=== PATIENT | male | born 1935 | race Caucasian/White ===

== ENCOUNTER 2017-12-17 17:15 | Inpatient (IN) ==
[2017-12-17 19:10] LABS: Basophils % 0.2 % (0.0-0.8); Hemoglobin 12.4 GM/DL (14.0-18.0); Immature Granulocytes Absolute 0.15 #; Lymphocytes # 1.6 10*3/uL (1.4-4.0); Lymphocytes % 10.4 % (21.2-54.2); Mean Corpuscular HGB Conc 33.5 GM/DL (32-36); Mean Corpuscular Hemoglobin 30 PG (27-34); Mean Corpuscular Volume 90.5 FL (87-102); Mean Platelet Volume 9.2 FL (9.6-12.0); Monocytes # 0.6 10*3/uL (0.11-0.8); Monocytes % 4.2 % (1.7-12.7); Neutrophils # 12.7 10*3/uL (1.4-7.4); Neutrophils % 84.2 % (38.7-73.9); Platelet Count 399 T/CUMM (130-400); Red Blood Count 4.09 MC/CUMM (3.8-5.5); Red Cell Distribution Width 13.8 % (9.3-17.3); White Blood Count 15.1 T/CUMM (4-12)
[2017-12-17 19:40] LABS: Albumin 3.5 G/DL (3.4-5.0); Bilirubin,Total 0.5 MG/DL (0.2-1.0); Calcium 8.5 MG/DL (8.5-10.1); Lactic Acid 1.3 MMOL/L (0.4-2.0); Osmolality,Calculated 291.1 MOS/KG (273-304); Total Protein 6.9 G/DL (6.4-8.3)
[2017-12-17] MEDS ORDERED: SODIUM CHLORIDE 0.9% 1,000 ML IV ONE (20:15)
[2017-12-17] MEDS ORDERED: ONDANSETRON 4 MG/2 ML VIAL IV PRN (20:22)
[2017-12-17] MEDS ORDERED: MORPHINE 4 MG/1 ML VIAL IV PRN (20:25)
[2017-12-17] MEDS: LACTATED RINGERS 1,000 ML IV SCH (22:30)
[2017-12-17] MEDS: MULTIVITAMIN (OCUVITE) TABLET PO SCH (22:31)
[2017-12-17] MEDS: FERROUS SULFATE 325 MG TABLET PO SCH (22:31)
[2017-12-17] MEDS: cycloSPORINE OPH EMUL 1 VIAL BOTH EYES SCH (22:31)
[2017-12-18 06:08] LABS: Basophils % 0.1 % (0.0-0.8); Eosinophils % 0.1 % (0.00-10.9); Hematocrit 34.4 VOL% (42.0-52.0); Hemoglobin 11.5 GM/DL (14.0-18.0); Immature Granulocytes % 0.7 %; Immature Granulocytes Absolute 0.11 #; Lymphocytes # 2.7 10*3/uL (1.4-4.0); Mean Corpuscular HGB Conc 33.4 GM/DL (32-36); Mean Corpuscular Hemoglobin 30 PG (27-34); Mean Corpuscular Volume 90.3 FL (87-102); Mean Platelet Volume 9.5 FL (9.6-12.0); Monocytes # 1.3 10*3/uL (0.11-0.8); Monocytes % 8.2 % (1.7-12.7); Neutrophils # 11.7 10*3/uL (1.4-7.4); Neutrophils % 73.9 % (38.7-73.9); Platelet Count 429 T/CUMM (130-400); Red Blood Count 3.81 MC/CUMM (3.8-5.5); White Blood Count 15.8 T/CUMM (4-12)
[2017-12-18] MEDS: LACTATED RINGERS 1,000 ML IV SCH ×3 (06:26→22:53)
[2017-12-18 06:32] LABS: Calcium 8.3 MG/DL (8.5-10.1); Osmolality,Calculated 280.7 MOS/KG (273-304); Potassium 3.7 MMOL/L (3.5-5.1)
[2017-12-18] MEDS ORDERED: cefOXitin 2,000 MG in SYRINGE 1 EACH IV ONE (09:30)
[2017-12-18] MEDS: ASPIRIN EC 81 MG TABLET PO SCH (10:15)
[2017-12-18] MEDS: PIOGLITAZONE 15 MG TABLET PO SCH (10:15)
[2017-12-18] MEDS: metFORMIN 500 MG TABLET PO SCH ×3 (10:15→17:11)
[2017-12-18] MEDS: OMEGA 3 ACID ETHYL ESTERS 1 GM CAPSULE PO SCH (10:16)
[2017-12-18] MEDS: FINASTERIDE 5 MG TABLET PO SCH (10:16)
[2017-12-18] MEDS: cycloSPORINE OPH EMUL 1 VIAL BOTH EYES SCH ×2 (10:16→20:13)
[2017-12-18] MEDS: MULTIVITAMIN (OCUVITE) TABLET PO SCH ×2 (10:16→20:08)
[2017-12-18] MEDS: PANTOPRAZOLE 40 MG TABLET PO SCH (10:16)
[2017-12-18] MEDS: FERROUS SULFATE 325 MG TABLET PO SCH ×2 (10:16→20:08)
[2017-12-18] MEDS: MONTELUKAST 10 MG TABLET PO SCH (10:17)
[2017-12-18] MEDS: ASCORBIC ACID 500 MG TABLET PO SCH (10:17)
[2017-12-18] MEDS ORDERED: PANTOPRAZOLE 40 MG VIAL IV ONE (10:18)
[2017-12-18] MEDS: TIMOLOL 0.5% OPH SOLN 5 ML BOTTLE BOTH EYES SCH (10:18)
[2017-12-18] MEDS ORDERED: BUPIVACAINE MPF 0.25% /EPI 30 ML VIAL ONE (11:18)
[2017-12-18] MEDS ORDERED: GLUCAGON 1 MG VIAL IM PRN (11:54)
[2017-12-18] MEDS ORDERED: DEXTROSE 50% 25 GM/50 ML VIAL IV PRN (11:54)
[2017-12-18 13:40] LABS: Apearance,Urine Slightly Hazy (Clear); Bilirubin,Urine Negative (Negative); Blood, Urine Negative (Negative); Glucose,Urine (UA) >=500 mg/dL (Negative); Ketones,Urine 80 mg/dL (Negative); Mucus,Urine Occasional /LPF (Occasional); Nitrite,Urine Positive (Negative); Protein,Urine 30 MG/DL; RBC,Urine 2 /HPF (0-4); Squamous Epithelial Cell,Urine Occasional /HPF (0-10); Urine Color Yellow (Yellow); Urine Specific Gravity 1.026 (1.001-1.035); Urine Urobilinogen < 2.0 EU/DL (0.2-1.0); WBC,Urine 35 /HPF (0-6)
[2017-12-18] MEDS ORDERED: fentaNYL 100 MCG/2 ML VIAL ONE (13:41)
[2017-12-18] MEDS ORDERED: SUCCINYLCHOLINE 200 MG/10 ML VIAL ONE (13:41)
[2017-12-18] MEDS ORDERED: SEVOFLURANE 1 UNIT/15 MINUTE INH ONE (13:41)
[2017-12-18] MEDS ORDERED: GLYCOPYRROLATE 0.4 MG/2 ML VIAL ONE (13:41)
[2017-12-18] MEDS ORDERED: ONDANSETRON 4 MG/2 ML VIAL ONE (13:41)
[2017-12-18] MEDS ORDERED: MIDAZOLAM 2 MG/2 ML VIAL ONE (13:41)
[2017-12-18] MEDS ORDERED: PROPOFOL 200 MG/20 ML VIAL IV ONE (13:41)
[2017-12-18] MEDS ORDERED: NEOSTIGMINE 10 MG/10 ML VIAL ONE (13:42)
[2017-12-18] MEDS ORDERED: ROCURONIUM 100 MG/10 ML VIAL IV ONE (13:42)
[2017-12-18] MEDS ORDERED: LACTATED RINGERS 2,000 ML IV ONE (13:42)
[2017-12-18] MEDS: INSULIN REGULAR 100 UNIT/ML SUBCUT SCH ×2 (17:00→20:12)
[2017-12-18] MEDS: ceFAZolin 1,000 MG in SYRINGE 1 EACH IV SCH ×2 (17:01→22:52)
[2017-12-18] MEDS: GLIMEPIRIDE 4 MG TABLET PO SCH (17:10)
[2017-12-18] MEDS: SILODOSIN 8 MG CAPSULE PO SCH (20:09)
[2017-12-19] MEDS: ceFAZolin 1,000 MG in SYRINGE 1 EACH IV SCH ×4 (05:04→22:50)
[2017-12-19] MEDS: LACTATED RINGERS 1,000 ML IV SCH ×3 (05:05→22:49)
[2017-12-19 07:36] LABS: Basophils % 0.2 % (0.0-0.8); Eosinophils % 0.2 % (0.00-10.9); Hematocrit 34.2 VOL% (42.0-52.0); Hemoglobin 11.1 GM/DL (14.0-18.0); Immature Granulocytes % 0.2 %; Immature Granulocytes Absolute 0.02 #; Lymphocytes % 24.5 % (21.2-54.2); Mean Corpuscular HGB Conc 32.5 GM/DL (32-36); Mean Corpuscular Hemoglobin 30 PG (27-34); Mean Corpuscular Volume 92.2 FL (87-102); Mean Platelet Volume 9.9 FL (9.6-12.0); Monocytes # 1.4 10*3/uL (0.11-0.8); Monocytes % 17.8 % (1.7-12.7); Neutrophils # 4.6 10*3/uL (1.4-7.4); Neutrophils % 57.1 % (38.7-73.9); Platelet Count 373 T/CUMM (130-400); Red Blood Count 3.71 MC/CUMM (3.8-5.5); Red Cell Distribution Width 14.3 % (9.3-17.3); White Blood Count 8.1 T/CUMM (4-12)
[2017-12-19] MEDS: INSULIN REGULAR 100 UNIT/ML SUBCUT SCH ×4 (07:47→21:10)
[2017-12-19 07:53] LABS: Calcium 7.7 MG/DL (8.5-10.1); Osmolality,Calculated 279.5 MOS/KG (273-304); Potassium 3.5 MMOL/L (3.5-5.1)
[2017-12-19 08:04] LABS: Band Neutrophils 27 % (0-10); Lymphocytes 19 % (20-55); Segmented Neutrophils 43 % (50-85); Total Cells Counted 100
[2017-12-19 08:05] LABS: Platelet Estimate Normal
[2017-12-19] MEDS: TIMOLOL 0.5% OPH SOLN 5 ML BOTTLE BOTH EYES SCH (09:14)
[2017-12-19] MEDS: MONTELUKAST 10 MG TABLET PO SCH (09:14)
[2017-12-19] MEDS: cycloSPORINE OPH EMUL 1 VIAL BOTH EYES SCH ×2 (09:15→21:10)
[2017-12-19] MEDS: metFORMIN 500 MG TABLET PO SCH ×3 (09:44→17:50)
[2017-12-19] MEDS: OMEGA 3 ACID ETHYL ESTERS 1 GM CAPSULE PO SCH (09:44)
[2017-12-19] MEDS: FERROUS SULFATE 325 MG TABLET PO SCH ×2 (09:44→21:09)
[2017-12-19] MEDS: ASPIRIN EC 81 MG TABLET PO SCH (09:44)
[2017-12-19] MEDS: PIOGLITAZONE 15 MG TABLET PO SCH (09:44)
[2017-12-19] MEDS: FINASTERIDE 5 MG TABLET PO SCH (09:45)
[2017-12-19] MEDS: MULTIVITAMIN (OCUVITE) TABLET PO SCH ×2 (09:45→21:10)
[2017-12-19] MEDS: PANTOPRAZOLE 40 MG TABLET PO SCH (09:45)
[2017-12-19] MEDS: ASCORBIC ACID 500 MG TABLET PO SCH (09:45)
[2017-12-19] MEDS: GLIMEPIRIDE 4 MG TABLET PO SCH (17:50)
[2017-12-19] MEDS: SILODOSIN 8 MG CAPSULE PO SCH (21:09)
[2017-12-20] MEDS: LACTATED RINGERS 1,000 ML IV SCH ×3 (04:51→20:36)
[2017-12-20] MEDS: ceFAZolin 1,000 MG in SYRINGE 1 EACH IV SCH ×4 (04:51→22:23)
[2017-12-20] MEDS: INSULIN REGULAR 100 UNIT/ML SUBCUT SCH ×4 (07:04→20:30)
[2017-12-20] MEDS: metFORMIN 500 MG TABLET PO SCH ×3 (08:45→17:02)
[2017-12-20] MEDS: PIOGLITAZONE 15 MG TABLET PO SCH (08:45)
[2017-12-20] MEDS: ASPIRIN EC 81 MG TABLET PO SCH (08:45)
[2017-12-20] MEDS: FERROUS SULFATE 325 MG TABLET PO SCH ×2 (08:46→20:30)
[2017-12-20] MEDS: OMEGA 3 ACID ETHYL ESTERS 1 GM CAPSULE PO SCH (08:46)
[2017-12-20] MEDS: cycloSPORINE OPH EMUL 1 VIAL BOTH EYES SCH ×2 (08:47→20:30)
[2017-12-20] MEDS: PANTOPRAZOLE 40 MG TABLET PO SCH (08:47)
[2017-12-20] MEDS: MONTELUKAST 10 MG TABLET PO SCH (08:47)
[2017-12-20] MEDS: FINASTERIDE 5 MG TABLET PO SCH (08:47)
[2017-12-20] MEDS: MULTIVITAMIN (OCUVITE) TABLET PO SCH (08:47)
[2017-12-20] MEDS: TIMOLOL 0.5% OPH SOLN 5 ML BOTTLE BOTH EYES SCH (08:48)
[2017-12-20] MEDS: ASCORBIC ACID 500 MG TABLET PO SCH (08:48)
[2017-12-20] MEDS: [UNRECOGNIZED DRUG - REMARK] PO SCH (08:54)
[2017-12-20] MEDS: Mirabegron [Myrbetriq] 50 MG PO SCH (08:55)
[2017-12-20] MEDS: PRESERVISION PO SCH ×2 (10:11→20:30)
[2017-12-20 12:38] LABS: Apearance,Urine CLEAR (Clear); Bilirubin,Urine Negative (Negative); Blood, Urine Negative (Negative); Glucose,Urine (UA) 150 mg/dL (Negative); Ketones,Urine 20 mg/dL (Negative); Mucus,Urine Occasional /LPF (Occasional); Nitrite,Urine Negative (Negative); Protein,Urine Negative; RBC,Urine 1 /HPF (0-4); Squamous Epithelial Cell,Urine Occasional /HPF (0-10); Urine Color Yellow (Yellow); Urine Specific Gravity 1.014 (1.001-1.035); Urine Urobilinogen < 2.0 EU/DL (0.2-1.0); WBC,Urine 7 /HPF (0-6)
[2017-12-20] MEDS: GLIMEPIRIDE 4 MG TABLET PO SCH (17:02)
[2017-12-20] MEDS: SILODOSIN 8 MG CAPSULE PO SCH (20:30)
[2017-12-20] MEDS ORDERED: FUROSEMIDE 20 MG/2 ML VIAL IV ONE (22:07)
[2017-12-20] MEDS: ALBUTEROL/IPRATROPIUM 3 ML NEB RESP TX PRN (22:16)
[2017-12-21 02:46] LABS: Basophils % 0.3 % (0.0-0.8); Eosinophils % 0.1 % (0.00-10.9); Hematocrit 36.8 VOL% (42.0-52.0); Immature Granulocytes Absolute 0.12 #; Lymphocytes # 1.9 10*3/uL (1.4-4.0); Lymphocytes % 15.1 % (21.2-54.2); Mean Corpuscular HGB Conc 32.6 GM/DL (32-36); Mean Corpuscular Hemoglobin 30 PG (27-34); Monocytes # 1.8 10*3/uL (0.11-0.8); Monocytes % 14.7 % (1.7-12.7); Neutrophils # 8.5 10*3/uL (1.4-7.4); Neutrophils % 68.8 % (38.7-73.9); Platelet Count 426 T/CUMM (130-400); Red Cell Distribution Width 13.7 % (9.3-17.3); White Blood Count 12.3 T/CUMM (4-12)
[2017-12-21] MEDS: ALBUTEROL/IPRATROPIUM 3 ML NEB RESP TX PRN (03:19)
[2017-12-21 03:32] LABS: Osmolality,Calculated 288.5 MOS/KG (273-304); Potassium 2.9 MMOL/L (3.5-5.1)
[2017-12-21 03:40] LABS: Platelet Estimate Increased
[2017-12-21] MEDS: ceFAZolin 1,000 MG in SYRINGE 1 EACH IV SCH (05:17)
[2017-12-21] MEDS ORDERED: METOPROLOL TARTRATE 5 MG/5 ML VIAL IV ONE ×2 (05:40→05:43)
[2017-12-21 05:57] LABS: ABG Base Excess -0.3 MMOL/L (-2.5-2.5); ABG HCO3 24.2 MMOL/L (20-26); ABG Oxygen Saturation 95.6 % (95-100); ABG PCO2 38.9 MM HG (35-48); ABG PH 7.404 (7.35-7.45); ABG PO2 79.7 MM HG (80-95); ABG TCO2 21.6 MMOL/L (23-27)
[2017-12-21] MEDS: POTASSIUM CHLORIDE RIDER 10 MEQ in PREMIX 1 EACH IV PRN ×8 (06:32→19:34)
[2017-12-21 06:40] LABS: Apearance,Urine CLEAR (Clear); Bilirubin,Urine Negative (Negative); Blood, Urine Negative (Negative); Glucose,Urine (UA) 150 mg/dL (Negative); Ketones,Urine 20 mg/dL (Negative); Nitrite,Urine Negative (Negative); Protein,Urine Negative; RBC,Urine <1 /HPF (0-4); Squamous Epithelial Cell,Urine Occasional /HPF (0-10); Urine Color Yellow (Yellow); Urine Specific Gravity 1.012 (1.001-1.035); Urine Urobilinogen < 2.0 EU/DL (0.2-1.0); WBC,Urine 1 /HPF (0-6)
[2017-12-21] MEDS: ALBUTEROL/IPRATROPIUM 3 ML NEB RESP TX SCH ×3 (08:23→19:34)
[2017-12-21] MEDS: METOCLOPRAMIDE 10 MG/2 ML VIAL IV SCH ×3 (08:44→21:18)
[2017-12-21] MEDS: metFORMIN 500 MG TABLET PO SCH ×3 (08:48→17:20)
[2017-12-21] MEDS: PIOGLITAZONE 15 MG TABLET PO SCH (08:48)
[2017-12-21] MEDS: PANTOPRAZOLE 40 MG TABLET PO SCH (08:49)
[2017-12-21] MEDS: MONTELUKAST 10 MG TABLET PO SCH (08:49)
[2017-12-21] MEDS: FINASTERIDE 5 MG TABLET PO SCH (08:49)
[2017-12-21] MEDS: ASPIRIN EC 81 MG TABLET PO SCH (08:50)
[2017-12-21] MEDS: OMEGA 3 ACID ETHYL ESTERS 1 GM CAPSULE PO SCH (08:50)
[2017-12-21] MEDS: FERROUS SULFATE 325 MG TABLET PO SCH ×2 (08:51→20:46)
[2017-12-21] MEDS: ASCORBIC ACID 500 MG TABLET PO SCH (08:51)
[2017-12-21] MEDS: ENOXAPARIN 40 MG/0.4 ML SYRINGE SUBCUT SCH (08:58)
[2017-12-21] MEDS: CLINDAMYCIN INJ 900 MG in PREMIX 1 EACH IV SCH ×3 (09:00→21:17)
[2017-12-21] MEDS: INSULIN REGULAR 100 UNIT/ML SUBCUT SCH ×3 (09:06→17:19)
[2017-12-21] MEDS: cycloSPORINE OPH EMUL 1 VIAL BOTH EYES SCH ×2 (09:25→21:19)
[2017-12-21] MEDS: TIMOLOL 0.5% OPH SOLN 5 ML BOTTLE BOTH EYES SCH (09:26)
[2017-12-21] MEDS: [UNRECOGNIZED DRUG - REMARK] PO SCH (09:32)
[2017-12-21] MEDS: Mirabegron [Myrbetriq] 50 MG PO SCH (09:32)
[2017-12-21] MEDS: PRESERVISION PO SCH ×2 (09:32→20:47)
[2017-12-21] MEDS: GLIMEPIRIDE 4 MG TABLET PO SCH (17:20)
[2017-12-21] MEDS: SILODOSIN 8 MG CAPSULE PO SCH (20:47)
[2017-12-22] MEDS: INSULIN REGULAR 100 UNIT/ML SUBCUT SCH ×5 (01:14→20:31)
[2017-12-22] MEDS: METOCLOPRAMIDE 10 MG/2 ML VIAL IV SCH ×4 (02:00→21:07)
[2017-12-22] MEDS: ALBUTEROL/IPRATROPIUM 3 ML NEB RESP TX SCH ×4 (02:02→19:59)
[2017-12-22 02:18] LABS: Basophils % 0.2 % (0.0-0.8); Eosinophils % 0.4 % (0.00-10.9); Hematocrit 26.7 VOL% (42.0-52.0); Hemoglobin 8.9 GM/DL (14.0-18.0); Immature Granulocytes % 2.6 %; Immature Granulocytes Absolute 0.27 #; Lymphocytes # 1.6 10*3/uL (1.4-4.0); Lymphocytes % 15.5 % (21.2-54.2); Mean Corpuscular HGB Conc 33.3 GM/DL (32-36); Mean Corpuscular Hemoglobin 30 PG (27-34); Mean Corpuscular Volume 90.8 FL (87-102); Mean Platelet Volume 10.1 FL (9.6-12.0); Monocytes # 1.7 10*3/uL (0.11-0.8); Monocytes % 15.8 % (1.7-12.7); Neutrophils # 6.8 10*3/uL (1.4-7.4); Neutrophils % 65.5 % (38.7-73.9); Platelet Count 333 T/CUMM (130-400); Red Blood Count 2.94 MC/CUMM (3.8-5.5); Red Cell Distribution Width 13.8 % (9.3-17.3); White Blood Count 10.4 T/CUMM (4-12)
[2017-12-22 02:49] LABS: Calcium 8.2 MG/DL (8.5-10.1); Osmolality,Calculated 287.1 MOS/KG (273-304); Potassium 3.2 MMOL/L (3.5-5.1)
[2017-12-22 03:16] LABS: Band Neutrophils 17 % (0-10); Lymphocytes 21 % (20-55); Metamyelocytes 4 %; Myelocytes 2 %; Segmented Neutrophils 39 % (50-85)
[2017-12-22 03:17] LABS: Platelet Estimate Normal; Reactive Lymphocytes 1+
[2017-12-22 03:18] LABS: Total Cells Counted 100
[2017-12-22] MEDS: POTASSIUM CHLORIDE RIDER 10 MEQ in PREMIX 1 EACH IV PRN ×6 (03:30→15:38)
[2017-12-22] MEDS: CLINDAMYCIN INJ 900 MG in PREMIX 1 EACH IV SCH ×5 (03:30→21:08)
[2017-12-22 06:32] LABS: Basophils % 0.3 % (0.0-0.8); Eosinophils # 0.1 10*3/uL (0.0-0.87); Eosinophils % 0.7 % (0.00-10.9); Hematocrit 28.8 VOL% (42.0-52.0); Hemoglobin 9.6 GM/DL (14.0-18.0); Immature Granulocytes % 4.7 %; Immature Granulocytes Absolute 0.58 #; Lymphocytes % 15.8 % (21.2-54.2); Mean Corpuscular HGB Conc 33.3 GM/DL (32-36); Mean Corpuscular Hemoglobin 31 PG (27-34); Mean Platelet Volume 9.6 FL (9.6-12.0); Monocytes # 1.9 10*3/uL (0.11-0.8); Monocytes % 15.4 % (1.7-12.7); Neutrophils # 7.9 10*3/uL (1.4-7.4); Neutrophils % 63.1 % (38.7-73.9); Platelet Count 335 T/CUMM (130-400); Red Blood Count 3.13 MC/CUMM (3.8-5.5); White Blood Count 12.4 T/CUMM (4-12)
[2017-12-22 07:01] LABS: Acanthocytes Few; Atypical Lymphocytes Few; Band Neutrophils 7 % (0-10); Eosinophils 1 % (0-10); Lymphocytes 17 % (20-55); Microcytosis Slight; Segmented Neutrophils 61 % (50-85); Total Cells Counted 100
[2017-12-22 07:02] LABS: Platelet Estimate Normal
[2017-12-22] MEDS: ASPIRIN EC 81 MG TABLET PO SCH (08:47)
[2017-12-22] MEDS: OMEGA 3 ACID ETHYL ESTERS 1 GM CAPSULE PO SCH (08:47)
[2017-12-22] MEDS: [UNRECOGNIZED DRUG - REMARK] PO SCH (08:47)
[2017-12-22] MEDS: ASCORBIC ACID 500 MG TABLET PO SCH (08:47)
[2017-12-22] MEDS: MONTELUKAST 10 MG TABLET PO SCH (08:47)
[2017-12-22] MEDS: FINASTERIDE 5 MG TABLET PO SCH (08:47)
[2017-12-22] MEDS: PIOGLITAZONE 15 MG TABLET PO SCH (08:47)
[2017-12-22] MEDS: FERROUS SULFATE 325 MG TABLET PO SCH ×3 (08:47→21:11)
[2017-12-22] MEDS: PANTOPRAZOLE 40 MG TABLET PO SCH (08:47)
[2017-12-22] MEDS: metFORMIN 500 MG TABLET PO SCH ×3 (08:47→17:29)
[2017-12-22] MEDS: PRESERVISION PO SCH ×3 (08:48→21:10)
[2017-12-22] MEDS: Mirabegron [Myrbetriq] 50 MG PO SCH (08:48)
[2017-12-22] MEDS: ENOXAPARIN 40 MG/0.4 ML SYRINGE SUBCUT SCH (08:52)
[2017-12-22] MEDS: TIMOLOL 0.5% OPH SOLN 5 ML BOTTLE BOTH EYES SCH (08:55)
[2017-12-22] MEDS: cycloSPORINE OPH EMUL 1 VIAL BOTH EYES SCH ×2 (08:55→21:09)
[2017-12-22] MEDS: GLIMEPIRIDE 4 MG TABLET PO SCH (17:29)
[2017-12-22] MEDS: SILODOSIN 8 MG CAPSULE PO SCH ×2 (21:09→21:11)
[2017-12-23] MEDS: ALBUTEROL/IPRATROPIUM 3 ML NEB RESP TX SCH ×4 (01:38→20:00)
[2017-12-23] MEDS: METOCLOPRAMIDE 10 MG/2 ML VIAL IV SCH ×4 (02:21→20:45)
[2017-12-23] MEDS: CLINDAMYCIN INJ 900 MG in PREMIX 1 EACH IV SCH ×4 (02:21→20:43)
[2017-12-23 03:39] LABS: Basophils # 0.1 10*3/uL (0.0-0.2); Basophils % 0.6 % (0.0-0.8); Eosinophils # 0.2 10*3/uL (0.0-0.87); Eosinophils % 1.4 % (0.00-10.9); Hematocrit 26.8 VOL% (42.0-52.0); Hemoglobin 8.6 GM/DL (14.0-18.0); Immature Granulocytes % 12.2 %; Immature Granulocytes Absolute 1.64 #; Lymphocytes # 1.5 10*3/uL (1.4-4.0); Lymphocytes % 11.2 % (21.2-54.2); Mean Corpuscular HGB Conc 32.1 GM/DL (32-36); Mean Corpuscular Hemoglobin 29 PG (27-34); Mean Corpuscular Volume 91.5 FL (87-102); Mean Platelet Volume 9.7 FL (9.6-12.0); Monocytes # 2.2 10*3/uL (0.11-0.8); Monocytes % 16.1 % (1.7-12.7); Neutrophils # 7.9 10*3/uL (1.4-7.4); Neutrophils % 58.5 % (38.7-73.9); Platelet Count 337 T/CUMM (130-400); Red Blood Count 2.93 MC/CUMM (3.8-5.5); Red Cell Distribution Width 14.2 % (9.3-17.3); White Blood Count 13.5 T/CUMM (4-12)
[2017-12-23 04:54] LABS: Band Neutrophils 4 % (0-10); Eosinophils 2 % (0-10); Hypochromasia Slight; Lymphocytes 14 % (20-55); Metamyelocytes 3 %; Platelet Estimate Normal; Polychromasia Few; Segmented Neutrophils 69 % (50-85); Total Cells Counted 100
[2017-12-23 04:55] LABS: Microcytosis 1+
[2017-12-23] MEDS: INSULIN REGULAR 100 UNIT/ML SUBCUT SCH ×4 (07:49→20:41)
[2017-12-23] MEDS: TIMOLOL 0.5% OPH SOLN 5 ML BOTTLE BOTH EYES SCH (09:03)
[2017-12-23] MEDS: ENOXAPARIN 40 MG/0.4 ML SYRINGE SUBCUT SCH (09:03)
[2017-12-23] MEDS: cycloSPORINE OPH EMUL 1 VIAL BOTH EYES SCH ×2 (09:04→20:44)
[2017-12-23] MEDS: metFORMIN 500 MG TABLET PO SCH ×3 (10:23→16:15)
[2017-12-23] MEDS: FERROUS SULFATE 325 MG TABLET PO SCH ×2 (10:24→20:44)
[2017-12-23] MEDS: OMEGA 3 ACID ETHYL ESTERS 1 GM CAPSULE PO SCH (10:24)
[2017-12-23] MEDS: ASPIRIN EC 81 MG TABLET PO SCH (10:24)
[2017-12-23] MEDS: PIOGLITAZONE 15 MG TABLET PO SCH (10:24)
[2017-12-23] MEDS: [UNRECOGNIZED DRUG - REMARK] PO SCH (10:24)
[2017-12-23] MEDS: Mirabegron [Myrbetriq] 50 MG PO SCH (10:25)
[2017-12-23] MEDS: PRESERVISION PO SCH ×2 (10:25→20:44)
[2017-12-23] MEDS: MONTELUKAST 10 MG TABLET PO SCH (10:27)
[2017-12-23] MEDS: PANTOPRAZOLE 40 MG TABLET PO SCH (10:27)
[2017-12-23] MEDS: FINASTERIDE 5 MG TABLET PO SCH (10:27)
[2017-12-23] MEDS: ASCORBIC ACID 500 MG TABLET PO SCH (10:27)
[2017-12-23] MEDS: GLIMEPIRIDE 4 MG TABLET PO SCH (16:15)
[2017-12-23] MEDS: SILODOSIN 8 MG CAPSULE PO SCH (20:41)
[2017-12-24] MEDS: ALBUTEROL/IPRATROPIUM 3 ML NEB RESP TX SCH ×4 (00:25→18:30)
[2017-12-24] MEDS: METOCLOPRAMIDE 10 MG/2 ML VIAL IV SCH ×4 (01:27→20:57)
[2017-12-24] MEDS: CLINDAMYCIN INJ 900 MG in PREMIX 1 EACH IV SCH ×4 (03:50→21:46)
[2017-12-24 04:24] LABS: Basophils # 0.2 10*3/uL (0.0-0.2); Basophils % 0.9 % (0.0-0.8); Eosinophils # 0.1 10*3/uL (0.0-0.87); Eosinophils % 0.7 % (0.00-10.9); Hematocrit 27.5 VOL% (42.0-52.0); Hemoglobin 8.8 GM/DL (14.0-18.0); Immature Granulocytes % 12.9 %; Immature Granulocytes Absolute 2.24 #; Lymphocytes # 1.4 10*3/uL (1.4-4.0); Lymphocytes % 8.2 % (21.2-54.2); Mean Corpuscular Hemoglobin 30 PG (27-34); Mean Corpuscular Volume 92.3 FL (87-102); Mean Platelet Volume 9.8 FL (9.6-12.0); Monocytes # 2.1 10*3/uL (0.11-0.8); Neutrophils # 11.4 10*3/uL (1.4-7.4); Neutrophils % 65.3 % (38.7-73.9); Platelet Count 366 T/CUMM (130-400); Red Blood Count 2.98 MC/CUMM (3.8-5.5); Red Cell Distribution Width 14.3 % (9.3-17.3); White Blood Count 17.4 T/CUMM (4-12)
[2017-12-24 04:49] LABS: Calcium 8.2 MG/DL (8.5-10.1)
[2017-12-24 05:15] LABS: Band Neutrophils 1 % (0-10); Eosinophils 1 % (0-10); Hypochromasia 1+; Lymphocytes 9 % (20-55); Platelet Estimate Adequate; Segmented Neutrophils 79 % (50-85); Total Cells Counted 100
[2017-12-24 05:16] LABS: Microcytosis 1+
[2017-12-24] MEDS: metFORMIN 500 MG TABLET PO SCH ×3 (09:26→17:43)
[2017-12-24] MEDS: MONTELUKAST 10 MG TABLET PO SCH (09:26)
[2017-12-24] MEDS: PANTOPRAZOLE 40 MG TABLET PO SCH (09:26)
[2017-12-24] MEDS: ENOXAPARIN 40 MG/0.4 ML SYRINGE SUBCUT SCH (09:26)
[2017-12-24] MEDS: FERROUS SULFATE 325 MG TABLET PO SCH ×2 (09:27→20:57)
[2017-12-24] MEDS: PIOGLITAZONE 15 MG TABLET PO SCH (09:27)
[2017-12-24] MEDS: FINASTERIDE 5 MG TABLET PO SCH (09:27)
[2017-12-24] MEDS: ASCORBIC ACID 500 MG TABLET PO SCH (09:27)
[2017-12-24] MEDS: OMEGA 3 ACID ETHYL ESTERS 1 GM CAPSULE PO SCH (09:28)
[2017-12-24] MEDS: ASPIRIN EC 81 MG TABLET PO SCH (09:28)
[2017-12-24] MEDS: cycloSPORINE OPH EMUL 1 VIAL BOTH EYES SCH ×2 (09:29→21:02)
[2017-12-24] MEDS: MEROPENEM 500 MG in SODIUM CHLORIDE 0.9% 100 ML IV SCH ×2 (09:29→17:43)
[2017-12-24] MEDS: TIMOLOL 0.5% OPH SOLN 5 ML BOTTLE BOTH EYES SCH (09:30)
[2017-12-24] MEDS: INSULIN REGULAR 100 UNIT/ML SUBCUT SCH ×4 (09:30→20:57)
[2017-12-24] MEDS: PRESERVISION PO SCH ×2 (09:30→20:58)
[2017-12-24] MEDS: [UNRECOGNIZED DRUG - REMARK] PO SCH (09:31)
[2017-12-24] MEDS: Mirabegron [Myrbetriq] 50 MG PO SCH (09:31)
[2017-12-24] MEDS ORDERED: CYANOCOBALAMIN 1000 MCG/1 ML VIAL IM ONE (11:07)
[2017-12-24] MEDS: GLIMEPIRIDE 4 MG TABLET PO SCH (17:43)
[2017-12-24] MEDS: SILODOSIN 8 MG CAPSULE PO SCH (20:57)
[2017-12-25] MEDS: ALBUTEROL/IPRATROPIUM 3 ML NEB RESP TX SCH ×4 (00:46→20:24)
[2017-12-25] MEDS: MEROPENEM 500 MG in SODIUM CHLORIDE 0.9% 100 ML IV SCH ×3 (02:20→17:10)
[2017-12-25] MEDS: CLINDAMYCIN INJ 900 MG in PREMIX 1 EACH IV SCH ×4 (03:45→20:59)
[2017-12-25] MEDS: METOCLOPRAMIDE 10 MG/2 ML VIAL IV SCH ×4 (04:26→21:01)
[2017-12-25 04:55] LABS: Basophils # 0.1 10*3/uL (0.0-0.2); Basophils % 0.8 % (0.0-0.8); Eosinophils # 0.3 10*3/uL (0.0-0.87); Eosinophils % 1.6 % (0.00-10.9); Hemoglobin 9.1 GM/DL (14.0-18.0); Immature Granulocytes % 12.3 %; Immature Granulocytes Absolute 2.02 #; Lymphocytes # 1.9 10*3/uL (1.4-4.0); Lymphocytes % 11.3 % (21.2-54.2); Mean Corpuscular HGB Conc 32.5 GM/DL (32-36); Mean Corpuscular Hemoglobin 30 PG (27-34); Mean Corpuscular Volume 91.8 FL (87-102); Mean Platelet Volume 10.1 FL (9.6-12.0); Monocytes # 1.8 10*3/uL (0.11-0.8); Monocytes % 10.8 % (1.7-12.7); NRBC # 0.02 10*3/uL; Neutrophils # 10.4 10*3/uL (1.4-7.4); Neutrophils % 63.2 % (38.7-73.9); Platelet Count 411 T/CUMM (130-400); Red Blood Count 3.05 MC/CUMM (3.8-5.5); Red Cell Distribution Width 14.1 % (9.3-17.3); White Blood Count 16.5 T/CUMM (4-12)
[2017-12-25 05:20] LABS: Band Neutrophils 6 % (0-10); Lymphocytes 11 % (20-55); Myelocytes 2 %; Segmented Neutrophils 68 % (50-85); Total Cells Counted 100
[2017-12-25 05:21] LABS: Hypochromasia 1+; Microcytosis 1+; Platelet Estimate Adequate
[2017-12-25 05:26] LABS: Calcium 8.1 MG/DL (8.5-10.1); Osmolality,Calculated 285.1 MOS/KG (273-304); Potassium 2.9 MMOL/L (3.5-5.1)
[2017-12-25 06:37] LABS: Apearance,Urine CLEAR (Clear); Bilirubin,Urine Negative (Negative); Blood, Urine Negative (Negative); Glucose,Urine (UA) >=500 mg/dL (Negative); Ketones,Urine 20 mg/dL (Negative); Mucus,Urine Occasional /LPF (Occasional); Nitrite,Urine Negative (Negative); Protein,Urine 100 MG/DL; RBC,Urine 44 /HPF (0-4); Squamous Epithelial Cell,Urine Occasional /HPF (0-10); Urine Color Yellow (Yellow); Urine Urobilinogen < 2.0 EU/DL (0.2-1.0); WBC,Urine 3 /HPF (0-6)
[2017-12-25] MEDS: INSULIN REGULAR 100 UNIT/ML SUBCUT SCH ×4 (08:01→21:00)
[2017-12-25] MEDS: ENOXAPARIN 40 MG/0.4 ML SYRINGE SUBCUT SCH (09:22)
[2017-12-25] MEDS: PANTOPRAZOLE 40 MG TABLET PO SCH (09:23)
[2017-12-25] MEDS: MONTELUKAST 10 MG TABLET PO SCH (09:23)
[2017-12-25] MEDS: metFORMIN 500 MG TABLET PO SCH ×3 (09:23→17:10)
[2017-12-25] MEDS: FINASTERIDE 5 MG TABLET PO SCH (09:23)
[2017-12-25] MEDS: PIOGLITAZONE 15 MG TABLET PO SCH (09:23)
[2017-12-25] MEDS: POTASSIUM CHLORIDE 20 MEQ TABLET PO PRN ×2 (09:24→11:11)
[2017-12-25] MEDS: OMEGA 3 ACID ETHYL ESTERS 1 GM CAPSULE PO SCH (09:24)
[2017-12-25] MEDS: FERROUS SULFATE 325 MG TABLET PO SCH ×2 (09:24→20:53)
[2017-12-25] MEDS: ASCORBIC ACID 500 MG TABLET PO SCH (09:24)
[2017-12-25] MEDS: cycloSPORINE OPH EMUL 1 VIAL BOTH EYES SCH ×2 (09:25→20:53)
[2017-12-25] MEDS: ASPIRIN EC 81 MG TABLET PO SCH (09:25)
[2017-12-25] MEDS: TIMOLOL 0.5% OPH SOLN 5 ML BOTTLE BOTH EYES SCH (09:25)
[2017-12-25] MEDS: PRESERVISION PO SCH ×2 (09:26→21:00)
[2017-12-25] MEDS: [UNRECOGNIZED DRUG - REMARK] PO SCH (09:26)
[2017-12-25] MEDS: Mirabegron [Myrbetriq] 50 MG PO SCH (09:26)
[2017-12-25] MEDS: DORNASE ALFA 2.5 MG/2.5 ML VIAL RESP TX SCH ×2 (10:10→20:24)
[2017-12-25] MEDS: POTASSIUM CHLORIDE 10 MEQ TABLET PO SCH ×3 (10:27→20:53)
[2017-12-25] MEDS: GLIMEPIRIDE 4 MG TABLET PO SCH (17:10)
[2017-12-25] MEDS: SILODOSIN 8 MG CAPSULE PO SCH (20:53)
[2017-12-26] MEDS: ALBUTEROL/IPRATROPIUM 3 ML NEB RESP TX SCH ×4 (01:38→19:19)
[2017-12-26] MEDS: MEROPENEM 500 MG in SODIUM CHLORIDE 0.9% 100 ML IV SCH ×3 (01:45→18:58)
[2017-12-26] MEDS: CLINDAMYCIN INJ 900 MG in PREMIX 1 EACH IV SCH ×4 (03:20→21:42)
[2017-12-26 05:32] LABS: Basophils # 0.1 10*3/uL (0.0-0.2); Basophils % 0.5 % (0.0-0.8); Eosinophils # 0.2 10*3/uL (0.0-0.87); Eosinophils % 1.2 % (0.00-10.9); Hematocrit 27.6 VOL% (42.0-52.0); Immature Granulocytes % 9.7 %; Immature Granulocytes Absolute 1.71 #; Lymphocytes % 11.1 % (21.2-54.2); Mean Corpuscular HGB Conc 32.6 GM/DL (32-36); Mean Corpuscular Hemoglobin 30 PG (27-34); Mean Corpuscular Volume 91.7 FL (87-102); Mean Platelet Volume 9.8 FL (9.6-12.0); Monocytes # 1.7 10*3/uL (0.11-0.8); Monocytes % 9.5 % (1.7-12.7); NRBC # 0.02 10*3/uL; Platelet Count 411 T/CUMM (130-400); Red Blood Count 3.01 MC/CUMM (3.8-5.5); White Blood Count 17.6 T/CUMM (4-12)
[2017-12-26 05:56] LABS: Eosinophils 1 % (0-10); Hypochromasia 1+; Lymphocytes 9 % (20-55); Microcytosis 1+; Platelet Estimate Adequate; Segmented Neutrophils 85 % (50-85); Total Cells Counted 100
[2017-12-26 06:07] LABS: Calcium 7.9 MG/DL (8.5-10.1); Osmolality,Calculated 282.4 MOS/KG (273-304); Potassium 3.3 MMOL/L (3.5-5.1)
[2017-12-26] MEDS: METOCLOPRAMIDE 10 MG/2 ML VIAL IV SCH ×3 (06:30→18:16)
[2017-12-26] MEDS: DORNASE ALFA 2.5 MG/2.5 ML VIAL RESP TX SCH ×2 (07:16→19:30)
[2017-12-26] MEDS: cycloSPORINE OPH EMUL 1 VIAL BOTH EYES SCH ×2 (09:33→21:43)
[2017-12-26] MEDS: TIMOLOL 0.5% OPH SOLN 5 ML BOTTLE BOTH EYES SCH (09:34)
[2017-12-26] MEDS: OMEGA 3 ACID ETHYL ESTERS 1 GM CAPSULE PO SCH (09:35)
[2017-12-26] MEDS: metFORMIN 500 MG TABLET PO SCH ×3 (09:36→18:15)
[2017-12-26] MEDS: PIOGLITAZONE 15 MG TABLET PO SCH (09:36)
[2017-12-26] MEDS: POTASSIUM CHLORIDE 20 MEQ TABLET PO PRN ×3 (09:36→18:15)
[2017-12-26] MEDS: FERROUS SULFATE 325 MG TABLET PO SCH ×2 (09:36→21:42)
[2017-12-26] MEDS: ASCORBIC ACID 500 MG TABLET PO SCH (09:36)
[2017-12-26] MEDS: MONTELUKAST 10 MG TABLET PO SCH (09:36)
[2017-12-26] MEDS: POTASSIUM CHLORIDE 10 MEQ TABLET PO SCH ×3 (09:36→21:42)
[2017-12-26] MEDS: FINASTERIDE 5 MG TABLET PO SCH (09:36)
[2017-12-26] MEDS: ASPIRIN EC 81 MG TABLET PO SCH (09:36)
[2017-12-26] MEDS: PANTOPRAZOLE 40 MG TABLET PO SCH (09:36)
[2017-12-26] MEDS: [UNRECOGNIZED DRUG - REMARK] PO SCH (09:39)
[2017-12-26] MEDS: PRESERVISION PO SCH ×2 (09:39→21:43)
[2017-12-26] MEDS: ENOXAPARIN 40 MG/0.4 ML SYRINGE SUBCUT SCH (09:39)
[2017-12-26] MEDS: INSULIN REGULAR 100 UNIT/ML SUBCUT SCH ×4 (09:40→21:43)
[2017-12-26] MEDS ORDERED: MAGNESIUM SULF RIDER 4 GM in PREMIX 1 EACH IV PRN (10:19)
[2017-12-26] MEDS: MAGNESIUM SULF RIDER 2 GM in PREMIX 1 EACH IV PRN (13:16)
[2017-12-26] MEDS: GLIMEPIRIDE 4 MG TABLET PO SCH (18:15)
[2017-12-26] MEDS: SILODOSIN 8 MG CAPSULE PO SCH (21:42)
[2017-12-27] MEDS: ALBUTEROL/IPRATROPIUM 3 ML NEB RESP TX SCH ×4 (00:32→19:00)
[2017-12-27] MEDS: METOCLOPRAMIDE 10 MG/2 ML VIAL IV SCH ×4 (01:17→17:36)
[2017-12-27] MEDS: MEROPENEM 500 MG in SODIUM CHLORIDE 0.9% 100 ML IV SCH ×3 (01:18→17:38)
[2017-12-27 02:06] LABS: Calcium 7.6 MG/DL (8.5-10.1); Osmolality,Calculated 284.1 MOS/KG (273-304); Potassium 3.2 MMOL/L (3.5-5.1)
[2017-12-27 02:11] LABS: Basophils # 0.1 10*3/uL (0.0-0.2); Basophils % 0.4 % (0.0-0.8); Eosinophils # 0.4 10*3/uL (0.0-0.87); Eosinophils % 2.3 % (0.00-10.9); Hematocrit 26.2 VOL% (42.0-52.0); Hemoglobin 8.6 GM/DL (14.0-18.0); Immature Granulocytes % 8.8 %; Lymphocytes # 2.9 10*3/uL (1.4-4.0); Lymphocytes % 17.9 % (21.2-54.2); Mean Corpuscular HGB Conc 32.8 GM/DL (32-36); Mean Corpuscular Hemoglobin 30 PG (27-34); Mean Platelet Volume 9.6 FL (9.6-12.0); Monocytes # 1.4 10*3/uL (0.11-0.8); Monocytes % 8.9 % (1.7-12.7); Neutrophils # 9.8 10*3/uL (1.4-7.4); Neutrophils % 61.7 % (38.7-73.9); Platelet Count 415 T/CUMM (130-400); Red Blood Count 2.88 MC/CUMM (3.8-5.5)
[2017-12-27 02:35] LABS: Band Neutrophils 2 % (0-10); Eosinophils 4 % (0-10); Lymphocytes 18 % (20-55); Platelet Estimate Normal; Segmented Neutrophils 69 % (50-85); Total Cells Counted 100
[2017-12-27] MEDS: CLINDAMYCIN INJ 900 MG in PREMIX 1 EACH IV SCH ×4 (04:10→21:53)
[2017-12-27] MEDS: DORNASE ALFA 2.5 MG/2.5 ML VIAL RESP TX SCH ×2 (07:25→19:10)
[2017-12-27] MEDS: INSULIN REGULAR 100 UNIT/ML SUBCUT SCH ×4 (08:29→20:55)
[2017-12-27] MEDS: TIMOLOL 0.5% OPH SOLN 5 ML BOTTLE BOTH EYES SCH (09:27)
[2017-12-27] MEDS: OMEGA 3 ACID ETHYL ESTERS 1 GM CAPSULE PO SCH (09:27)
[2017-12-27] MEDS: ASCORBIC ACID 500 MG TABLET PO SCH (09:27)
[2017-12-27] MEDS: MONTELUKAST 10 MG TABLET PO SCH (09:27)
[2017-12-27] MEDS: cycloSPORINE OPH EMUL 1 VIAL BOTH EYES SCH ×2 (09:27→21:53)
[2017-12-27] MEDS: PIOGLITAZONE 15 MG TABLET PO SCH (09:27)
[2017-12-27] MEDS: POTASSIUM CHLORIDE 10 MEQ TABLET PO SCH ×3 (09:27→21:52)
[2017-12-27] MEDS: PANTOPRAZOLE 40 MG TABLET PO SCH (09:28)
[2017-12-27] MEDS: ENOXAPARIN 40 MG/0.4 ML SYRINGE SUBCUT SCH (09:28)
[2017-12-27] MEDS: ASPIRIN EC 81 MG TABLET PO SCH (09:28)
[2017-12-27] MEDS: FERROUS SULFATE 325 MG TABLET PO SCH ×2 (09:28→21:52)
[2017-12-27] MEDS: metFORMIN 500 MG TABLET PO SCH ×3 (09:28→17:35)
[2017-12-27] MEDS: FINASTERIDE 5 MG TABLET PO SCH (09:28)
[2017-12-27] MEDS ORDERED: POTASSIUM CHLORIDE RIDER 10 MEQ in PREMIX 1 EACH IV PRN (09:51)
[2017-12-27] MEDS: [UNRECOGNIZED DRUG - REMARK] PO SCH (10:06)
[2017-12-27] MEDS: PRESERVISION PO SCH ×2 (10:07→22:07)
[2017-12-27 12:43] LABS: Apearance,Urine Slightly Hazy (Clear); Bilirubin,Urine Negative (Negative); Blood, Urine Negative (Negative); Calcium Oxalate Crystals,Urine Occasional /HPF (Few); Glucose,Urine (UA) >=500 mg/dL (Negative); Hyaline Casts,Urine 3 /LPF (0-3); Ketones,Urine 5 mg/dL (Negative); Mucus,Urine Occasional /LPF (Occasional); Nitrite,Urine Negative (Negative); Protein,Urine 30 MG/DL; RBC,Urine 37 /HPF (0-4); Squamous Epithelial Cell,Urine Occasional /HPF (0-10); Urine Color Yellow (Yellow); Urine Specific Gravity 1.016 (1.001-1.035); Urine Urobilinogen < 2.0 EU/DL (0.2-1.0); WBC,Urine 51 /HPF (0-6)
[2017-12-27] MEDS: GLIMEPIRIDE 4 MG TABLET PO SCH (17:35)
[2017-12-27] MEDS: SILODOSIN 8 MG CAPSULE PO SCH (21:52)
[2017-12-28] MEDS: ALBUTEROL/IPRATROPIUM 3 ML NEB RESP TX SCH ×4 (00:25→19:04)
[2017-12-28] MEDS: METOCLOPRAMIDE 10 MG/2 ML VIAL IV SCH ×4 (01:38→17:55)
[2017-12-28] MEDS: MEROPENEM 500 MG in SODIUM CHLORIDE 0.9% 100 ML IV SCH ×3 (01:39→16:19)
[2017-12-28] MEDS: CLINDAMYCIN INJ 900 MG in PREMIX 1 EACH IV SCH ×4 (03:02→20:25)
[2017-12-28 04:36] LABS: Basophils # 0.1 10*3/uL (0.0-0.2); Basophils % 0.4 % (0.0-0.8); Eosinophils # 0.3 10*3/uL (0.0-0.87); Hematocrit 26.6 VOL% (42.0-52.0); Hemoglobin 8.6 GM/DL (14.0-18.0); Immature Granulocytes % 7.9 %; Lymphocytes # 2.8 10*3/uL (1.4-4.0); Lymphocytes % 16.9 % (21.2-54.2); Mean Corpuscular HGB Conc 32.3 GM/DL (32-36); Mean Corpuscular Hemoglobin 29 PG (27-34); Mean Corpuscular Volume 90.8 FL (87-102); Mean Platelet Volume 9.7 FL (9.6-12.0); Monocytes # 1.3 10*3/uL (0.11-0.8); Monocytes % 8.1 % (1.7-12.7); Neutrophils # 10.6 10*3/uL (1.4-7.4); Neutrophils % 64.7 % (38.7-73.9); Platelet Count 467 T/CUMM (130-400); Red Blood Count 2.93 MC/CUMM (3.8-5.5); Red Cell Distribution Width 14.2 % (9.3-17.3); White Blood Count 16.4 T/CUMM (4-12)
[2017-12-28 04:51] LABS: Calcium 7.6 MG/DL (8.5-10.1); Osmolality,Calculated 279.4 MOS/KG (273-304); Potassium 3.1 MMOL/L (3.5-5.1)
[2017-12-28 07:19] LABS: Band Neutrophils 2 % (0-10); Eosinophils 3 % (0-10); Lymphocytes 25 % (20-55); Platelet Estimate Normal; Segmented Neutrophils 62 % (50-85); Total Cells Counted 100
[2017-12-28] MEDS: DORNASE ALFA 2.5 MG/2.5 ML VIAL RESP TX SCH ×2 (07:29→19:04)
[2017-12-28] MEDS: INSULIN REGULAR 100 UNIT/ML SUBCUT SCH ×4 (07:57→20:26)
[2017-12-28] MEDS: OMEGA 3 ACID ETHYL ESTERS 1 GM CAPSULE PO SCH (08:48)
[2017-12-28] MEDS: POTASSIUM CHLORIDE 10 MEQ TABLET PO SCH ×3 (08:48→20:25)
[2017-12-28] MEDS: metFORMIN 500 MG TABLET PO SCH ×3 (08:48→16:21)
[2017-12-28] MEDS: FERROUS SULFATE 325 MG TABLET PO SCH ×2 (08:49→20:26)
[2017-12-28] MEDS: PIOGLITAZONE 15 MG TABLET PO SCH (08:49)
[2017-12-28] MEDS: MONTELUKAST 10 MG TABLET PO SCH (08:49)
[2017-12-28] MEDS: ASCORBIC ACID 500 MG TABLET PO SCH (08:49)
[2017-12-28] MEDS: ASPIRIN EC 81 MG TABLET PO SCH (08:49)
[2017-12-28] MEDS: PANTOPRAZOLE 40 MG TABLET PO SCH (08:49)
[2017-12-28] MEDS: FINASTERIDE 5 MG TABLET PO SCH (08:50)
[2017-12-28] MEDS: cycloSPORINE OPH EMUL 1 VIAL BOTH EYES SCH ×2 (08:53→22:14)
[2017-12-28] MEDS: TIMOLOL 0.5% OPH SOLN 5 ML BOTTLE BOTH EYES SCH (08:53)
[2017-12-28] MEDS: ENOXAPARIN 40 MG/0.4 ML SYRINGE SUBCUT SCH (08:54)
[2017-12-28] MEDS: MAGNESIUM SULF RIDER 2 GM in PREMIX 1 EACH IV PRN (09:00)
[2017-12-28] MEDS: PRESERVISION PO SCH ×2 (09:01→20:26)
[2017-12-28] MEDS: [UNRECOGNIZED DRUG - REMARK] PO SCH (09:01)
[2017-12-28] MEDS: POTASSIUM CHLORIDE 20 MEQ TABLET PO PRN ×4 (11:45→20:25)
[2017-12-28] MEDS: FLUCONAZOLE 100 MG TABLET PO SCH (12:56)
[2017-12-28] MEDS: GLIMEPIRIDE 4 MG TABLET PO SCH (16:21)
[2017-12-28] MEDS: SILODOSIN 8 MG CAPSULE PO SCH (20:25)
[2017-12-29] MEDS: MEROPENEM 500 MG in SODIUM CHLORIDE 0.9% 100 ML IV SCH ×3 (00:33→18:15)
[2017-12-29] MEDS: METOCLOPRAMIDE 10 MG/2 ML VIAL IV SCH ×4 (00:33→18:13)
[2017-12-29] MEDS: ALBUTEROL/IPRATROPIUM 3 ML NEB RESP TX SCH ×4 (00:56→19:18)
[2017-12-29] MEDS: CLINDAMYCIN INJ 900 MG in PREMIX 1 EACH IV SCH ×4 (03:32→21:09)
[2017-12-29 05:38] LABS: Calcium 7.6 MG/DL (8.5-10.1); Osmolality,Calculated 280.3 MOS/KG (273-304); Potassium 4.1 MMOL/L (3.5-5.1)
[2017-12-29] MEDS: DORNASE ALFA 2.5 MG/2.5 ML VIAL RESP TX SCH ×2 (07:27→19:18)
[2017-12-29] MEDS: INSULIN REGULAR 100 UNIT/ML SUBCUT SCH ×4 (08:14→22:02)
[2017-12-29] MEDS: PRESERVISION PO SCH ×2 (09:54→22:02)
[2017-12-29] MEDS: FINASTERIDE 5 MG TABLET PO SCH (10:26)
[2017-12-29] MEDS: OMEGA 3 ACID ETHYL ESTERS 1 GM CAPSULE PO SCH (10:26)
[2017-12-29] MEDS: PIOGLITAZONE 15 MG TABLET PO SCH (10:26)
[2017-12-29] MEDS: metFORMIN 500 MG TABLET PO SCH ×3 (10:26→16:30)
[2017-12-29] MEDS: PANTOPRAZOLE 40 MG TABLET PO SCH (10:26)
[2017-12-29] MEDS: MONTELUKAST 10 MG TABLET PO SCH (10:27)
[2017-12-29] MEDS: [UNRECOGNIZED DRUG - REMARK] PO SCH (10:28)
[2017-12-29] MEDS: ASPIRIN EC 81 MG TABLET PO SCH (10:28)
[2017-12-29] MEDS: FLUCONAZOLE 100 MG TABLET PO SCH (10:28)
[2017-12-29] MEDS: cycloSPORINE OPH EMUL 1 VIAL BOTH EYES SCH ×2 (10:30→21:10)
[2017-12-29] MEDS: ENOXAPARIN 40 MG/0.4 ML SYRINGE SUBCUT SCH (10:30)
[2017-12-29] MEDS: TIMOLOL 0.5% OPH SOLN 5 ML BOTTLE BOTH EYES SCH (10:31)
[2017-12-29] MEDS: FERROUS SULFATE 325 MG TABLET PO SCH ×2 (10:34→21:09)
[2017-12-29] MEDS: POTASSIUM CHLORIDE 10 MEQ TABLET PO SCH ×3 (10:34→21:09)
[2017-12-29] MEDS: ASCORBIC ACID 500 MG TABLET PO SCH (10:35)
[2017-12-29] MEDS: GLIMEPIRIDE 4 MG TABLET PO SCH (16:30)
[2017-12-29] MEDS: SILODOSIN 8 MG CAPSULE PO SCH (21:09)
[2017-12-30] MEDS: MEROPENEM 500 MG in SODIUM CHLORIDE 0.9% 100 ML IV SCH ×3 (00:35→17:08)
[2017-12-30] MEDS: METOCLOPRAMIDE 10 MG/2 ML VIAL IV SCH ×5 (00:35→23:54)
[2017-12-30] MEDS: ALBUTEROL/IPRATROPIUM 3 ML NEB RESP TX SCH ×4 (01:31→18:54)
[2017-12-30] MEDS: CLINDAMYCIN INJ 900 MG in PREMIX 1 EACH IV SCH ×4 (03:30→21:56)
[2017-12-30 07:08] LABS: Basophils # 0.1 10*3/uL (0.0-0.2); Basophils % 0.4 % (0.0-0.8); Eosinophils # 0.3 10*3/uL (0.0-0.87); Eosinophils % 1.8 % (0.00-10.9); Hematocrit 28.5 VOL% (42.0-52.0); Hemoglobin 9.2 GM/DL (14.0-18.0); Immature Granulocytes % 6.8 %; Immature Granulocytes Absolute 1.05 #; Lymphocytes # 2.1 10*3/uL (1.4-4.0); Lymphocytes % 13.6 % (21.2-54.2); Mean Corpuscular HGB Conc 32.3 GM/DL (32-36); Mean Corpuscular Hemoglobin 30 PG (27-34); Mean Corpuscular Volume 91.6 FL (87-102); Mean Platelet Volume 9.6 FL (9.6-12.0); Monocytes # 1.3 10*3/uL (0.11-0.8); Monocytes % 8.2 % (1.7-12.7); Neutrophils # 10.7 10*3/uL (1.4-7.4); Neutrophils % 69.2 % (38.7-73.9); Platelet Count 553 T/CUMM (130-400); Red Blood Count 3.11 MC/CUMM (3.8-5.5); Red Cell Distribution Width 14.7 % (9.3-17.3); White Blood Count 15.5 T/CUMM (4-12)
[2017-12-30 07:27] LABS: Calcium 8.5 MG/DL (8.5-10.1); Osmolality,Calculated 278.5 MOS/KG (273-304); Potassium 4.5 MMOL/L (3.5-5.1)
[2017-12-30 07:35] LABS: Band Neutrophils 1 % (0-10); Eosinophils 3 % (0-10); Hypochromasia 1+; Lymphocytes 8 % (20-55); Microcytosis 1+; Myelocytes 1 %; Segmented Neutrophils 78 % (50-85); Total Cells Counted 100
[2017-12-30 07:36] LABS: Platelet Estimate Increased
[2017-12-30] MEDS: DORNASE ALFA 2.5 MG/2.5 ML VIAL RESP TX SCH ×2 (08:15→19:04)
[2017-12-30] MEDS: FLUCONAZOLE 100 MG TABLET PO SCH (08:16)
[2017-12-30] MEDS: ASCORBIC ACID 500 MG TABLET PO SCH (08:16)
[2017-12-30] MEDS: MONTELUKAST 10 MG TABLET PO SCH (08:17)
[2017-12-30] MEDS: OMEGA 3 ACID ETHYL ESTERS 1 GM CAPSULE PO SCH (08:17)
[2017-12-30] MEDS: POTASSIUM CHLORIDE 10 MEQ TABLET PO SCH ×3 (08:17→21:56)
[2017-12-30] MEDS: TIMOLOL 0.5% OPH SOLN 5 ML BOTTLE BOTH EYES SCH (08:17)
[2017-12-30] MEDS: PANTOPRAZOLE 40 MG TABLET PO SCH (08:17)
[2017-12-30] MEDS: metFORMIN 500 MG TABLET PO SCH ×3 (08:17→17:08)
[2017-12-30] MEDS: FERROUS SULFATE 325 MG TABLET PO SCH ×2 (08:17→21:56)
[2017-12-30] MEDS: FINASTERIDE 5 MG TABLET PO SCH (08:17)
[2017-12-30] MEDS: ASPIRIN EC 81 MG TABLET PO SCH (08:17)
[2017-12-30] MEDS: cycloSPORINE OPH EMUL 1 VIAL BOTH EYES SCH ×2 (08:17→21:56)
[2017-12-30] MEDS: ENOXAPARIN 40 MG/0.4 ML SYRINGE SUBCUT SCH (08:17)
[2017-12-30] MEDS: PIOGLITAZONE 15 MG TABLET PO SCH (08:17)
[2017-12-30] MEDS: PRESERVISION PO SCH ×2 (08:18→21:57)
[2017-12-30] MEDS: [UNRECOGNIZED DRUG - REMARK] PO SCH (08:37)
[2017-12-30] MEDS: INSULIN REGULAR 100 UNIT/ML SUBCUT SCH ×4 (08:37→21:47)
[2017-12-30] MEDS ORDERED: NALOXONE 0.4 MG/ML VIAL IV PRN (13:47)
[2017-12-30] MEDS ORDERED: HYDROmorphone PCA 30 MG/30 ML SYRINGE IV SCH (14:00)
[2017-12-30] MEDS: GLIMEPIRIDE 4 MG TABLET PO SCH (17:07)
[2017-12-30] MEDS: SILODOSIN 8 MG CAPSULE PO SCH (21:56)
[2017-12-31] MEDS: MEROPENEM 500 MG in SODIUM CHLORIDE 0.9% 100 ML IV SCH ×3 (00:11→16:43)
[2017-12-31] MEDS: ALBUTEROL/IPRATROPIUM 3 ML NEB RESP TX SCH ×4 (00:20→19:29)
[2017-12-31] MEDS: CLINDAMYCIN INJ 900 MG in PREMIX 1 EACH IV SCH ×3 (05:42→18:07)
[2017-12-31] MEDS: METOCLOPRAMIDE 10 MG/2 ML VIAL IV SCH ×2 (05:42→11:24)
[2017-12-31 06:26] LABS: Basophils # 0.1 10*3/uL (0.0-0.2); Basophils % 0.3 % (0.0-0.8); Eosinophils # 0.3 10*3/uL (0.0-0.87); Eosinophils % 1.5 % (0.00-10.9); Hematocrit 28.1 VOL% (42.0-52.0); Hemoglobin 9.1 GM/DL (14.0-18.0); Lymphocytes % 11.2 % (21.2-54.2); Mean Corpuscular HGB Conc 32.4 GM/DL (32-36); Mean Corpuscular Hemoglobin 30 PG (27-34); Mean Corpuscular Volume 91.2 FL (87-102); Mean Platelet Volume 9.4 FL (9.6-12.0); Monocytes % 5.5 % (1.7-12.7); Neutrophils # 13.9 10*3/uL (1.4-7.4); Neutrophils % 76.5 % (38.7-73.9); Platelet Count 614 T/CUMM (130-400); Red Blood Count 3.08 MC/CUMM (3.8-5.5); Red Cell Distribution Width 14.9 % (9.3-17.3); White Blood Count 18.1 T/CUMM (4-12)
[2017-12-31 06:51] LABS: Band Neutrophils 1 % (0-10); Eosinophils 2 % (0-10); Hypochromasia 1+; Lymphocytes 7 % (20-55); Platelet Estimate Increased; Segmented Neutrophils 85 % (50-85); Total Cells Counted 100
[2017-12-31 06:52] LABS: Microcytosis 1+
[2017-12-31] MEDS: DORNASE ALFA 2.5 MG/2.5 ML VIAL RESP TX SCH ×2 (07:39→19:29)
[2017-12-31] MEDS: INSULIN REGULAR 100 UNIT/ML SUBCUT SCH ×4 (08:33→21:30)
[2017-12-31] MEDS: ENOXAPARIN 40 MG/0.4 ML SYRINGE SUBCUT SCH (09:03)
[2017-12-31] MEDS: PANTOPRAZOLE 40 MG TABLET PO SCH (09:03)
[2017-12-31] MEDS: PIOGLITAZONE 15 MG TABLET PO SCH (09:03)
[2017-12-31] MEDS: ASCORBIC ACID 500 MG TABLET PO SCH (09:03)
[2017-12-31] MEDS: POTASSIUM CHLORIDE 10 MEQ TABLET PO SCH ×3 (09:03→21:30)
[2017-12-31] MEDS: FINASTERIDE 5 MG TABLET PO SCH (09:03)
[2017-12-31] MEDS: ASPIRIN EC 81 MG TABLET PO SCH (09:03)
[2017-12-31] MEDS: FERROUS SULFATE 325 MG TABLET PO SCH ×2 (09:03→21:30)
[2017-12-31] MEDS: OMEGA 3 ACID ETHYL ESTERS 1 GM CAPSULE PO SCH (09:04)
[2017-12-31] MEDS: cycloSPORINE OPH EMUL 1 VIAL BOTH EYES SCH ×2 (09:04→21:30)
[2017-12-31] MEDS: MONTELUKAST 10 MG TABLET PO SCH (09:04)
[2017-12-31] MEDS: TIMOLOL 0.5% OPH SOLN 5 ML BOTTLE BOTH EYES SCH (09:04)
[2017-12-31] MEDS: [UNRECOGNIZED DRUG - REMARK] PO SCH (09:04)
[2017-12-31] MEDS: FLUCONAZOLE 100 MG TABLET PO SCH (09:04)
[2017-12-31] MEDS: metFORMIN 500 MG TABLET PO SCH ×3 (09:04→16:44)
[2017-12-31] MEDS: PRESERVISION PO SCH ×2 (09:05→21:20)
[2017-12-31 15:30] LABS: Apearance,Urine CLEAR (Clear); Bilirubin,Urine Negative (Negative); Blood, Urine Moderate mg/dL (Negative); Glucose,Urine (UA) 50 mg/dL (Negative); Ketones,Urine Negative (Negative); Nitrite,Urine Negative (Negative); Protein,Urine Negative; RBC,Urine 27 /HPF (0-4); Squamous Epithelial Cell,Urine Occasional /HPF (0-10); Urine Color Straw (Yellow); Urine Specific Gravity 1.016 (1.001-1.035); Urine Urobilinogen < 2.0 EU/DL (0.2-1.0); WBC,Urine 10 /HPF (0-6)
[2017-12-31] MEDS: GLIMEPIRIDE 4 MG TABLET PO SCH (16:44)
[2017-12-31] MEDS: SILODOSIN 8 MG CAPSULE PO SCH (21:30)
[2018-01-01] MEDS: ALBUTEROL/IPRATROPIUM 3 ML NEB RESP TX SCH ×3 (01:15→12:00)
[2018-01-01] MEDS: MEROPENEM 500 MG in SODIUM CHLORIDE 0.9% 100 ML IV SCH ×2 (02:51→08:53)
[2018-01-01 05:19] LABS: Basophils # 0.1 10*3/uL (0.0-0.2); Basophils % 0.7 % (0.0-0.8); Eosinophils # 0.3 10*3/uL (0.0-0.87); Eosinophils % 2.3 % (0.00-10.9); Hematocrit 28.5 VOL% (42.0-52.0); Hemoglobin 9.2 GM/DL (14.0-18.0); Immature Granulocytes % 4.3 %; Immature Granulocytes Absolute 0.56 #; Lymphocytes # 2.7 10*3/uL (1.4-4.0); Lymphocytes % 20.3 % (21.2-54.2); Mean Corpuscular HGB Conc 32.3 GM/DL (32-36); Mean Corpuscular Hemoglobin 30 PG (27-34); Mean Corpuscular Volume 92.2 FL (87-102); Mean Platelet Volume 10.9 FL (9.6-12.0); Monocytes # 1.3 10*3/uL (0.11-0.8); Monocytes % 9.6 % (1.7-12.7); Neutrophils # 8.3 10*3/uL (1.4-7.4); Neutrophils % 62.8 % (38.7-73.9); Platelet Count 430 T/CUMM (130-400); Red Blood Count 3.09 MC/CUMM (3.8-5.5); Red Cell Distribution Width 15.2 % (9.3-17.3); White Blood Count 13.1 T/CUMM (4-12)
[2018-01-01 05:33] LABS: Calcium 8.5 MG/DL (8.5-10.1)
[2018-01-01 05:34] LABS: Osmolality,Calculated 279.3 MOS/KG (273-304)
[2018-01-01 05:46] LABS: Band Neutrophils 1 % (0-10); Eosinophils 2 % (0-10); Lymphocytes 15 % (20-55); Myelocytes 1 %; Segmented Neutrophils 71 % (50-85); Total Cells Counted 100
[2018-01-01 05:47] LABS: Hypochromasia 1+; Microcytosis 1+
[2018-01-01] MEDS: DORNASE ALFA 2.5 MG/2.5 ML VIAL RESP TX SCH (07:05)
[2018-01-01] MEDS: INSULIN REGULAR 100 UNIT/ML SUBCUT SCH ×2 (08:39→12:21)
[2018-01-01] MEDS: POTASSIUM CHLORIDE 10 MEQ TABLET PO SCH (08:41)
[2018-01-01] MEDS: PANTOPRAZOLE 40 MG TABLET PO SCH (08:41)
[2018-01-01] MEDS: MONTELUKAST 10 MG TABLET PO SCH (08:41)
[2018-01-01] MEDS: metFORMIN 500 MG TABLET PO SCH ×2 (08:41→12:20)
[2018-01-01] MEDS: OMEGA 3 ACID ETHYL ESTERS 1 GM CAPSULE PO SCH (08:42)
[2018-01-01] MEDS: PIOGLITAZONE 15 MG TABLET PO SCH (08:42)
[2018-01-01] MEDS: ASCORBIC ACID 500 MG TABLET PO SCH (08:42)
[2018-01-01] MEDS: FLUCONAZOLE 100 MG TABLET PO SCH (08:42)
[2018-01-01] MEDS: ASPIRIN EC 81 MG TABLET PO SCH (08:42)
[2018-01-01] MEDS: FINASTERIDE 5 MG TABLET PO SCH (08:42)
[2018-01-01] MEDS: FERROUS SULFATE 325 MG TABLET PO SCH (08:42)
[2018-01-01] MEDS: [UNRECOGNIZED DRUG - REMARK] PO SCH (08:54)
[2018-01-01] MEDS: PRESERVISION PO SCH (08:55)
[2018-01-01] MEDS: ENOXAPARIN 40 MG/0.4 ML SYRINGE SUBCUT SCH (10:21)
[2018-01-01] MEDS: cycloSPORINE OPH EMUL 1 VIAL BOTH EYES SCH (10:22)
[2018-01-01] MEDS: TIMOLOL 0.5% OPH SOLN 5 ML BOTTLE BOTH EYES SCH (10:22)
[2018-01-01 16:20] VITALS: BP 157/76
== END 2018-01-01 16:35 | disposition home or self-care (01) | DRG 335 ==
LOC: N.3E 17:34 → N.ICU 12-21 05:18 → N.3E 12-22 11:01
PROVIDERS: ADMIT Surgery; ATTEND Surgery